=== PATIENT | female | born 1990 | race Caucasian/White ===

== ENCOUNTER 2019-01-29 10:12 | Outpatient (CLI) | payer OTHER | END 2019-01-29 23:59 | disposition home or self-care (01) | LOC: CFH 10:12 | PROVIDERS: ATTEND Psychiatry & Neurology Neurology | DX: I63.9 Cerebral infarction, unspecified (principal) | CPT/HCPCS: 70553; A9585 ==

== ENCOUNTER 2019-04-15 09:55 | Outpatient (CLI) | payer SELFPAY ==
[~2019-04-15 09:55] MED LIST: IBUP-1222 PO; LABE100T6 PO; OXYC-302 PO
[2019-04-15 10:18] LABS: BASOPHILS # (AUTO) 0.04 x10^3/uL (0-0.1); BASOPHILS % (AUTO) 1 % (0-1); EOSINOPHILS % (AUTO) 1 % (1-7); LYMPHOCYTES # (AUTO) 2.05 x10^3/uL (1-3.4); LYMPHOCYTES % (AUTO) 26 % (22-44); MD NO; MEAN CORPUSCULAR HEMOGLOBIN 31.4 pg (27.0-34.8); MEAN CORPUSCULAR HGB CONC 33.5 g/dL (32.4-35.8); MEAN CORPUSCULAR VOLUME 93.8 fL (80-100); MONOCYTES # (AUTO) 0.63 x10^3/uL (0.2-0.8); MONOCYTES % (AUTO) 8 % (2-9); NEUTROPHILS # (AUTO) 4.94 x10^3/uL (1.8-6.8); NEUTROPHILS % (AUTO) 64 % (42-75); PLATELET COUNT 356 x10^3/uL (130-400); RED CELL DISTRIBUTION WIDTH 13.6 % (9.6-15.2)
== END 2019-04-15 23:59 | disposition home or self-care (01) ==
LOC: LAB 09:55
PROVIDERS: ATTEND Family Medicine
DX: R00.0 Tachycardia, unspecified (principal); Z80.8 Family history of malignant neoplasm of other organs or systems; Z87.891 Personal history of nicotine dependence; I63.9 Cerebral infarction, unspecified; I82.499 Acute embolism and thrombosis of other specified deep vein of unspecified lower extremity; E11.8 Type 2 diabetes mellitus with unspecified complications; Z16.21 Resistance to vancomycin; C80.1 Malignant (primary) neoplasm, unspecified; R50.9 Fever, unspecified
CPT/HCPCS: 36415; 84443; 85025

== ENCOUNTER → 2021-01-07 | Outpatient (CLI) | payer OTHER, BC ==
[~2021-01-07] MED LIST changes: +NORE-88 PO; -OXYC-302 PO; +OXYC1TAB14 PO; +RIZA10TA5 PO
[2021-01-07 15:43] LABS: ALANINE AMINOTRANSFERASE 19 U/L (12-78); ALBUMIN 3.2 g/dL (3.4-5.0); ANION GAP 6 mmol/L (5-15); CALCIUM 8.6 mg/dL (8.5-10.1); CHLORIDE 109 mmol/L (98-107)
[2021-01-07 15:48] LABS: ALKALINE PHOSPHATASE 55 U/L (45-117); BILIRUBIN,TOTAL 0.2 mg/dL (0.2-1.0); CREATININE 0.74 mg/dL (0.55-1.02); TOTAL PROTEIN 6.8 g/dL (6.4-8.2)
[2021-01-07 16:08] LABS: BASOPHILS % (AUTO) 1 % (0-1); EOSINOPHILS % (AUTO) 1 % (1-7); LYMPHOCYTES % (AUTO) 35 % (22-44); MEAN CORPUSCULAR HEMOGLOBIN 30.7 pg (27.0-34.8); MEAN CORPUSCULAR HGB CONC 33.7 g/dL (32.4-35.8); MEAN PLATELET VOLUME 7.7 fL (7.4-10.4); MONOCYTES % (AUTO) 9 % (2-9); NEUTROPHILS % (AUTO) 55 % (42-75); PLATELET COUNT 325 x10^3/uL (130-400); RED CELL DISTRIBUTION WIDTH 12.5 % (9.6-15.2)
[2021-01-07 17:40] LABS: MICROSCOPIC NOT IND
== END | disposition home or self-care (01) ==
LOC: STAR 14:37
PROVIDERS: ATTEND Obstetrics & Gynecology
DX: Z01.812 Encounter for preprocedural laboratory examination (principal); Z20.822 Contact with and (suspected) exposure to COVID-19; N92.1 Excessive and frequent menstruation with irregular cycle
CPT/HCPCS: 36415; 80053; 81003; 84702; 85025; U0003; U0005

== ENCOUNTER 2021-01-13 10:06 | Observation (INO) | payer OTHER, BC ==
[~2021-01-13] VITALS: Ht 167.6 cm; Wt 97.6 kg
[2021-01-13] MEDS ORDERED: LACTATED RINGERS 1,000 ML IV SCH (11:00)
[2021-01-13] MEDS ORDERED: CHLORHEXIDINE 15 ML UDC PO ONE (11:00)
[2021-01-13] MEDS ORDERED: EPINEPHRINE 1 MG/ML, 1ML ONE (11:43)
[2021-01-13] MEDS ORDERED: BUPIVACAINE 0.25% ONE (11:43)
[2021-01-13] MEDS ORDERED: LEVOFLOXACIN/PMX 500MG/100ML 100 ML ONE (12:23)
[2021-01-13] MEDS ORDERED: ROCURONIUM 10 MG/ML,10ML ONE (12:24)
[2021-01-13] MEDS ORDERED: NEOSTIGMINE 1 MG/ML, 10ML ONE (12:24)
[2021-01-13] MEDS ORDERED: ONDANSETRON 2MG/ML, 2ML ONE (12:24)
[2021-01-13] MEDS ORDERED: FENTANYL PF 250 MCG/5ML ONE (12:24)
[2021-01-13] MEDS ORDERED: MIDAZOLAM 1 MG/ML, 2ML ONE (12:24)
[2021-01-13] MEDS ORDERED: KETOROLAC 30 MG/1 ML ONE (12:24)
[2021-01-13] MEDS ORDERED: GLYCOPYRROLATE 0.2MG/1ML, 5ML ONE (12:24)
[2021-01-13] MEDS ORDERED: PROPOFOL 10 MG/ML, 20ML ONE (12:24)
[2021-01-13] MEDS ORDERED: FENTANYL PF 100 MCG/2ML ONE ×3 (12:24→15:36)
[2021-01-13] MEDS ORDERED: CEFAZOLIN 1,000 MG ONE (12:24)
[2021-01-13] MEDS ORDERED: hydrALAzine 20 MG/ML, 1ML IV PRN (12:30)
[2021-01-13] MEDS ORDERED: ACETAMINOPHEN 325 MG TABLET PO PRN (12:30)
[2021-01-13] MEDS ORDERED: OXYcodone 5 MG/5 ML ORAL.SOL UDC PO PRN (12:30)
[2021-01-13] MEDS ORDERED: morphine SULFATE 10 MG/ML, 1ML IVPush PRN (12:30)
[2021-01-13] MEDS ORDERED: MEPERIDINE/PF 25MG/0.5ML IVPush PRN (12:30)
[2021-01-13] MEDS ORDERED: HYDROmorphone 1 MG/ML, 1ML INJ IVPush PRN (12:30)
[2021-01-13] MEDS ORDERED: PROMETHAZINE 25 MG/ML, 1ML IVPush PRN (12:30)
[2021-01-13] MEDS ORDERED: FENTANYL PF 100 MCG/2ML IV PRN (12:30)
[2021-01-13] MEDS ORDERED: HALOPERIDOL 5 MG/ML IV PRN (12:30)
[2021-01-13] MEDS ORDERED: LABETALOL 5MG/ML, 20ML IV PRN (12:30)
[2021-01-13] MEDS ORDERED: PROMETHAZINE 25 MG/ML, 1ML ONE (15:43)
[2021-01-13] MEDS ORDERED: OXYcodone/APAP 5/325MG TABLET PO PRN (19:00)
[2021-01-13] MEDS ORDERED: KETOROLAC 30 MG/1 ML IV PRN (19:00)
[2021-01-13] MEDS: LACTATED RINGERS 1,000 ML IV SCH (19:00)
[2021-01-13 19:59] VITALS: BP 113/74
[2021-01-14 00:03] VITALS: BP 100/67
[2021-01-14] MEDS: LACTATED RINGERS 1,000 ML IV SCH ×2 (02:47→11:00)
[2021-01-14 04:05] VITALS: BP 128/80
[2021-01-14 08:10] VITALS: BP 132/80
[2021-01-14] MEDS ORDERED: RIZATRIPTAN 10MG TABLET PO PRN (10:00)
[2021-01-14] MEDS ORDERED: IBUP200T49 PO (10:06)
[2021-01-14] MEDS ORDERED: OXYC1TAB14 PO (10:07)
[2021-01-14 10:37] LABS: BASOPHILS % (AUTO) 0 % (0-1); EOSINOPHILS % (AUTO) 0 % (1-7); LYMPHOCYTES % (AUTO) 20 % (22-44); MEAN CORPUSCULAR HEMOGLOBIN 30.8 pg (27.0-34.8); MEAN CORPUSCULAR HGB CONC 34.1 g/dL (32.4-35.8); MEAN PLATELET VOLUME 7.3 fL (7.4-10.4); MONOCYTES % (AUTO) 9 % (2-9); NEUTROPHILS % (AUTO) 71 % (42-75); PLATELET COUNT 313 x10^3/uL (130-400); RED BLOOD COUNT 4.03 x10^6/uL (3.82-5.3); RED CELL DISTRIBUTION WIDTH 12.9 % (9.6-15.2)
[2021-01-14 12:40] VITALS: BP 134/77
[2021-01-14 13:30] VITALS: BP 133/74
== END 2021-01-14 14:07 | disposition home or self-care (01) ==
LOC: OUT 10:06 → 4NE 17:00 → OUT 22:40 → 4NE 22:41 → DCLOUNGE 01-14 13:58
PROVIDERS: ADMIT Obstetrics & Gynecology; ATTEND Obstetrics & Gynecology
DX: N92.1 Excessive and frequent menstruation with irregular cycle (principal); Z88.0 Allergy status to penicillin; G43.909 Migraine, unspecified, not intractable, without status migrainosus; Z79.899 Other long term (current) drug therapy
CPT/HCPCS: 36415; 58552; 81025; 85025; 86850; 86900; 88307; G0378; J0171; J0690; J1885; J1956; J2250; J2270; J2405; J2550; J2704; J2710; J3010; J7120; J1100

== ENCOUNTER 2021-01-27 15:38 | Outpatient (CLI) | payer OTHER, BC ==
[~2021-01-27 15:38] MED LIST changes: +IBUP200T49 PO; +OXYC1TAB12 PO; -OXYC1TAB14 PO
== END 2021-01-27 23:59 | disposition home or self-care (01) ==
LOC: LAB 15:38
PROVIDERS: ATTEND Internal Medicine
DX: Z02.9 Encounter for administrative examinations, unspecified (principal)